=== PATIENT | female | born 1960 | race Caucasian/White ===

== ENCOUNTER 2023-07-27 23:32 | Emergency (ER) | payer SELFPAY ==
[~2023-07-27] VITALS: Ht 170.2 cm; Wt 127.0 kg
[2023-07-27 23:40] VITALS: BP 172/100; PULSE 106; RESP 18; TEMP 97.3; O2SAT 98
[2023-07-28] MEDS ORDERED: SODIUM CHLORIDE 0.9% 1,000 ML IV ONE
[2023-07-28] MEDS ORDERED: ACETAMINOPHEN 325MG TABLET PO ONE
[2023-07-28 00:13] LABS: EOSINOPHILS % 1.5 % (0.0-5.0); HEMATOCRIT. 41.2 % (36.0-48.0); MEAN CORPUSCULAR HGB CONC 34.1 g/dL (31.0-37.0); MEAN CORPUSCULAR VOLUME 90.8 fL (81.0-99.0); MEAN PLATELET VOLUME 9.4 fl (7.4-10.4); MONOCYTES % 7.5 % (2.0-8.0); PLATELET 239 x1000/uL (130-400); RED BLOOD CELL COUNT 4.53 mill/uL (4.2-5.4); RED CELL DISTRIBUTION WIDTH 13.2 % (11.6-14.6); WHITE BLOOD COUNT 11.8 x1000/uL (4.5-11.0)
[2023-07-28 00:22] LABS: CARBON DIOXIDE 25 mEq/L (21-32); CHLORIDE 102 mEq/L (98-107); POTASSIUM 3.7 mEq/L (3.5-5.1); SODIUM 136 mEq/L (136-145)
[2023-07-28 00:23] LABS: CALCIUM 10.2 mg/dL (8.7-10.4)
[2023-07-28 00:27] LABS: CREATININE 1.1 mg/dL (0.6-1.0); GLUCOSE 130 mg/dL (70-105)
[2023-07-28 00:28] LABS: UREA NITROGEN BLOOD 14 mg/dL (9-23)
[2023-07-28 00:29] LABS: ALANINE AMINOTRANSFERASE 51 IU/L (10-49); ALBUMIN 4.4 g/dL (3.2-4.8); ASPARTATE AMINOTRANSFERASE 38 IU/L (<34); CREATINE KINASE 112 IU/L (34-145)
[2023-07-28 00:30] LABS: BILIRUBIN TOTAL 0.9 mg/dL (0.1-1.0); PHOSPHORUS 2.9 mg/dL (2.5-4.9); PROTEIN TOTAL 7.9 g/dL (6.0-8.3)
[2023-07-28] MEDS: ACETAMINOPHEN 325MG TABLET PO NR (02:37)
== END 2023-07-28 04:00 | disposition left against medical advice (07) ==
LOC: ER 23:32
DX: R52 Pain, unspecified (principal); I10 Essential (primary) hypertension; Z98.890 Other specified postprocedural states; Z91.040 Latex allergy status
CPT/HCPCS: 99283; 80053; 82550; 83690; 83735; 84100; 85025; 36415; J7030